=== PATIENT | male | born 1985 | race Caucasian/White ===

== ENCOUNTER 2025-03-13 11:12 | Emergency (ER) | payer SELFPAY ==
[~2025-03-13] VITALS: Ht 167.6 cm; Wt 90.0 kg
[2025-03-13 11:17] VITALS: O2SAT 98
[2025-03-13] MEDS: LORAZEPAM 2MG/ML UD SYRINGE IM NR ×3 (13:39→21:52)
[2025-03-13] MEDS: OLANZAPINE 10 MG/VIAL IM ONE (13:39)
[2025-03-13 15:18] LABS: BASOPHILS % 1.0 % (0.0-2.0); EOSINOPHILS % 0.7 % (0.0-5.0); HEMATOCRIT. 40.1 % (42.0-52.0); HEMOGLOBIN. 13.9 g/dL (14.0-18.0); LYMPHOCYTES % 21.5 % (20.0-50.0); MEAN PLATELET VOLUME 7.8 fl (7.4-10.4); MONOCYTES % 8.3 % (2.0-8.0); NEUTROPHILS % 68.5 % (40.0-76.0); PLATELET 282 x1000/uL (130-400); RED BLOOD CELL COUNT 4.53 mill/uL (4.7-6.1); RED CELL DISTRIBUTION WIDTH 13.7 % (11.6-14.6)
[2025-03-13 15:33] LABS: CREATININE 0.8 mg/dL (0.6-1.3); UREA NITROGEN BLOOD 15 mg/dL (9-23)
[2025-03-13 15:34] LABS: ETHANOL BLOOD < 10 mg/dL (<10)
[2025-03-13 18:32] LABS: CLARITY URINE CLEAR (CLEAR); COLOR URINE DARK YELLOW (YELLOW); GLUCOSE URINE NEGATIVE (NEGATIVE); KETONES URINE NEGATIVE (NEGATIVE); LEUKOCYTE ESTERASE URINE NEGATIVE (NEGATIVE); NITRITE URINE NEGATIVE (NEGATIVE); OCCULT BLOOD URINE NEGATIVE (NEGATIVE); PH URINE 5.5 (4.5-8.0); PROTEIN URINE TRACE (NEGATIVE); SPECIFIC GRAVITY URINE 1.029 (1.005-1.030); UROBILINOGEN URINE 0.2 E.U./dL (0.2-1.0)
[2025-03-13 18:50] LABS: BASOPHILS % 0.7 % (0.0-2.0); EOSINOPHILS % 1.3 % (0.0-5.0); HEMATOCRIT. 45.7 % (42.0-52.0); HEMOGLOBIN. 15.3 g/dL (14.0-18.0); LYMPHOCYTES % 34.0 % (20.0-50.0); MEAN PLATELET VOLUME 7.9 fl (7.4-10.4); MONOCYTES % 10.9 % (2.0-8.0); NEUTROPHILS % 53.1 % (40.0-76.0); PLATELET 309 x1000/uL (130-400); RED BLOOD CELL COUNT 5.08 mill/uL (4.7-6.1); RED CELL DISTRIBUTION WIDTH 13.7 % (11.6-14.6)
[2025-03-13 18:51] LABS: BACTERIA URINE TRACE; RBC URINE NONE SEEN /hpf (0-2); SQUAMOUS EPITHELIAL CELL URINE FEW /lpf (RARE/1+); WBC URINE 0-2 /hpf (0-2)
[2025-03-13 18:54] LABS: *AMPHETAMINES SCREEN URINE NEGATIVE (NEGATIVE); *BARBITURATES SCREEN URINE NEGATIVE (NEGATIVE); *BENZODIAZEPINES SCREEN URINE NEGATIVE (NEGATIVE); *COCAINE SCREEN URINE NEGATIVE (NEGATIVE); METHADONE URINE SCREEN NEGATIVE (NEGATIVE)
[2025-03-13 18:55] LABS: CANNABINOID URINE SCREEN NEGATIVE (NEGATIVE); ECSTASY MDMA SCREEN URINE NEGATIVE (NEGATIVE); OPIATES URINE SCREEN NEGATIVE (NEGATIVE); PHENCYCLIDINE URINE SCREEN NEGATIVE (NEGATIVE)
[2025-03-13 19:01] LABS: CREATININE 0.9 mg/dL (0.6-1.3); UREA NITROGEN BLOOD 14 mg/dL (9-23)
[2025-03-13 19:02] LABS: ETHANOL BLOOD < 10 mg/dL (<10)
[2025-03-13] MEDS: HALOPERIDOL LACTATE 5MG/ML VIAL IM ONE (21:19)
[2025-03-13 21:35] LABS: TROPONIN I HIGH SENSITIVITY < 4 ng/L (3.0-53)
[2025-03-13] MEDS: DIPHENHYDRAMINE 50MG/ML VIAL IM ONE (21:51)
[2025-03-14 12:00] VITALS: BP 112/64; PULSE 69; RESP 16; TEMP 36.9; O2SAT 99
[2025-03-14] MEDS: OLANZAPINE 5MG TABLET PO SCH (16:00)
== END 2025-03-14 21:44 | disposition left against medical advice (07) ==
LOC: ER 11:12 → EDBEDREQTM 20:53 → EDBEDREQ 20:53 → ER 03-14 21:44 → CMPBEDREQ 03-15 07:37
DX: F39 Unspecified mood [affective] disorder (principal); R07.9 Chest pain, unspecified; R51.9 Headache, unspecified
CPT/HCPCS: 80305; 80048; 81003; 80307; 80329; 80320; 83880; 85025; 84484; 36415; 71045; 70450; 71250; 93005; 96372; 99285; J3490; J1200; J1630; J2060; Z7610 ×3; G0480